=== PATIENT | female | born 1980 | race African-American/Black ===

== ENCOUNTER 2018-11-28 10:53 | Emergency (ER) | payer SELFPAY ==
[~2018-11-28] VITALS: Ht 177.8 cm; Wt 90.7 kg
[2018-11-28 11:19] VITALS: BP 148/94
== END 2018-11-28 11:25 | disposition left against medical advice (07) ==
LOC: ER 10:53 → EDBD 10:53 → ER 11:25
DX: R56.9 Unspecified convulsions (principal); Z53.21 Procedure and treatment not carried out due to patient leaving prior to being seen by health care provider